=== PATIENT | female | born 2000 | race Caucasian/White ===

== ENCOUNTER 2023-08-26 08:00 | Outpatient (CLI) | payer OTHER ==
[2023-08-26 20:37] LABS: CHLAMYDIA TRACHOMATIS DNA NEGATIVE (NEGATIVE); NEISSERIA GONORRHOEAE DNA NEGATIVE (NEGATIVE)
[2023-08-26 22:34] LABS: BACTERIAL VAGINOSIS DNA NEGATIVE (NEGATIVE); CANDIDA GLABRATA DNA NEGATIVE (NEGATIVE); CANDIDA GROUP DNA NEGATIVE (NEGATIVE); CANDIDA KRUSEI DNA NEGATIVE (NEGATIVE); TRICHOMONAS VAGINALIS DNA NEGATIVE (NEGATIVE)
== END 2023-08-26 23:59 | disposition home or self-care (01) ==
LOC: LAB 08:00
PROVIDERS: ATTEND Obstetrics & Gynecology
DX: N98.8 Other complications associated with artificial fertilization (principal); Z11.3 Encounter for screening for infections with a predominantly sexual mode of transmission
CPT/HCPCS: 81514; 87491; 87591; 87661